=== PATIENT | male | born 1945 | race Two or more races ===

== ENCOUNTER 2023-04-20 18:43 | Inpatient (IN) | payer MEDICARE ==
[~2023-04-20] VITALS: Ht 180.3 cm; Wt 81.3 kg
[2023-04-20] MEDS ORDERED: DEXTROSE (50%) 50ML SYRG IV ONE (19:15)
[2023-04-20] MEDS ORDERED: ACCU-CHEK COMFORT CURVE STRIP VI ONE (19:30)
[2023-04-20 20:22] LABS: Basophils # (auto) 0 10 ^3/uL (0-0.2); Basophils % (auto) 0.6 % (0.0-2.0); Eosinophils # (auto) 0.1 10 ^3/uL (0-0.8); Eosinophils % (auto) 0.9 % (0.0-7.0); Hematocrit 31.1 % (41.0-53.0); Hemoglobin 10.4 g/dL (13.5-17.5); Lymphocytes # (auto) 0.8 10 ^3/uL (0.4-5.4); Lymphocytes % (auto) 8.8 % (10.0-50.0); Mean Corpuscular Hemoglobin 32.7 pg (28.0-32.0); Mean Corpuscular Hgb Conc. 33.4 g/dL (32.0-36.0); Mean Corpuscular Volume 97.8 fL (80.0-100.0); Monocytes # (auto) 1.3 10 ^3/uL (0-1.3); Monocytes % (auto) 15.8 % (0.0-12.0); Neutrophils # (auto) 6.3 10 ^3/uL (1.6-8.6); Neutrophils % (auto) 73.9 % (37.0-80.0); Nucleated Red Blood Cells % 0.1 %; Red Blood Cells 3.18 10^6/uL (4.5-5.90); Red Cell Distribution Width 16.4 % (11.8-14.3); White Blood Cell 8.6 10^3/uL (4.4-10.8)
[2023-04-20 20:44] LABS: Albumin 2.8 g/dL (3.4-5.0); Calcium 8.7 mg/dL (8.7-10.4); Potassium 4.1 mmol/L (3.5-5.1)
[2023-04-20 20:48] LABS: BUN/Creatinine Ratio 28.1 (10.0-20.0); Bilirubin, Total 0.4 mg/dL (0.2-1.0)
[2023-04-20 21:45] VITALS: PULSE 65; RESP 18; O2SAT 99
[2023-04-20 22:49] LABS: INR 1.03 (0.9-1.15); Partial Thromboplastin Time 23.6 SEC (24.5-34.5); Prothrombin Time 10.8 sec (9.3-11.8)
[2023-04-20 22:57] LABS: Blood Alcohol < 3.0 mg/dL (<10); Lipase 75 U/L (73-393); Magnesium 1.9 mg/dL (1.6-2.6)
[2023-04-21 01:42] LABS: Urine Bacteria NONE SEEN /hpf (None Seen); Urine Blood 2+ /uL (Negative); Urine Clarity HAZY (Clear); Urine Color Yellow (Yellow); Urine Protein, UAD 1+ (Negative); Urine Specific Gravity 1.018 (1.001-1.035); Urine Urobilinogen Normal (Negative); Urine WBC 47 /hpf (0 - 3); Urine pH 8.5 (5.0-8.0)
[2023-04-21 01:48] LABS: Alcohol, Urine < 3.0 mg/dL (0-10); Amphetamine Screen, Urine NEGATIVE (NEGATIVE); Barbiturate Scree,Urine NEGATIVE (NEGATIVE); Benzodiazephine Screen, Urine NEGATIVE (NEGATIVE); Cannabinoid Screen, Urine NEGATIVE (NEGATIVE); Cocaine Screen, Urine NEGATIVE (NEGATIVE); Opiate Scree,Urine NEGATIVE (NEGATIVE); Phencyclidine Screen, Urine NEGATIVE (NEGATIVE)
[2023-04-21] MEDS ORDERED: cefTRIAXone 1GM/50ML D5W 50 ML IV ONE (02:30)
[2023-04-21] MEDS ORDERED: LACTATED RINGER'S 1,000 ML IV ONE (02:30)
[2023-04-21] MEDS ORDERED: MORPHINE SULFATE INJ 2 MG/ml SYRG IV PRN (05:15)
[2023-04-21] MEDS ORDERED: NITROGLYCERIN 0.4 MG SL TAB SL PRN (05:15)
[2023-04-21] MEDS ORDERED: DEXTROSE (50%) 50ML SYRG IV PRN (05:15)
[2023-04-21] MEDS ORDERED: HYDROcodone-ACET 5/325MG TAB PO PRN (05:15)
[2023-04-21] MEDS ORDERED: ONDANSETRON HCL 4 MG/2 ML VIAL IV PRN (05:15)
[2023-04-21] MEDS ORDERED: ACETAMINOPHEN 325 MG TAB PO PRN (05:15)
[2023-04-21] MEDS ORDERED: cefTRIAXone 1GM/50ML D5W 50 ML IV SCH (09:00)
[2023-04-21] MEDS: InsuLIN REG 1unit/0.01ml Soln (100units/ml) SC SCH ×4 (09:03→20:00)
[2023-04-21] MEDS: ACCU-CHEK COMFORT CURVE STRIP VI SCH ×4 (09:03→20:17)
[2023-04-21] MEDS: LISINOPRIL 20 MG TAB PO SCH (09:06)
[2023-04-21] MEDS: PANTOPRAZOLE 40 MG TAB PO SCH (09:06)
[2023-04-21] MEDS: ENOXAPARIN SOD 40 MG/0.4 ML SYRINGE SC SCH (09:06)
[2023-04-21 10:37] VITALS: PULSE 74; RESP 20; O2SAT 100
[2023-04-21] MEDS ORDERED: SODIUM CHLORIDE 0.9% 1,000 ML IV ONE (15:30)
[2023-04-21] MEDS: Glucerna Carbsteady SHAKE Vanilla 8oz PO SCH ×2 (19:01→21:50)
[2023-04-21] MEDS ORDERED: LORazepam 2MG/ML-1ML VIAL IV PRN (19:45)
[2023-04-21 20:15] VITALS: PULSE 74; RESP 12; O2SAT 100
[2023-04-21] MEDS: ATORVASTATIN 20 MG TAB PO SCH (22:17)
[2023-04-22] VITALS (8 sets, daily range): BP systolic 108–134; BP diastolic 61–69; PULSE 63–86; RESP 16–19; TEMP 96.3–97.9; O2SAT 93–98
[2023-04-22] MEDS: ACCU-CHEK COMFORT CURVE STRIP VI SCH ×6 (00:19→20:00)
[2023-04-22] MEDS: InsuLIN REG 1unit/0.01ml Soln (100units/ml) SC SCH ×6 (04:00→20:00)
[2023-04-22 06:04] LABS: Basophils # (auto) 0 10 ^3/uL (0-0.2); Basophils % (auto) 0.8 % (0.0-2.0); Eosinophils # (auto) 0.2 10 ^3/uL (0-0.8); Eosinophils % (auto) 4.4 % (0.0-7.0); Hematocrit 27.8 % (41.0-53.0); Hemoglobin 9.6 g/dL (13.5-17.5); Lymphocytes # (auto) 0.7 10 ^3/uL (0.4-5.4); Lymphocytes % (auto) 12.2 % (10.0-50.0); Mean Corpuscular Hemoglobin 34.2 pg (28.0-32.0); Mean Corpuscular Hgb Conc. 34.7 g/dL (32.0-36.0); Mean Corpuscular Volume 98.4 fL (80.0-100.0); Monocytes # (auto) 0.8 10 ^3/uL (0-1.3); Monocytes % (auto) 14.3 % (0.0-12.0); Neutrophils # (auto) 3.8 10 ^3/uL (1.6-8.6); Neutrophils % (auto) 68.3 % (37.0-80.0); Nucleated Red Blood Cells % 0.1 %; Red Blood Cells 2.82 10^6/uL (4.5-5.90); Red Cell Distribution Width 16.9 % (11.8-14.3); White Blood Cell 5.6 10^3/uL (4.4-10.8)
[2023-04-22 06:31] LABS: Alanine Aminotransferase 16 U/L (7-40); Albumin 3.4 g/dL (3.2-4.8); Alkaline Phosphatase 62 U/L (46-116); Anion Gap 8.2 (5-15); Aspartate Aminotransferase 14 U/L (13-40); BUN/Creatinine Ratio 24.4 (10.0-20.0); Blood Urea Nitrogen 21 mg/dL (9-23); Calcium 8.7 mg/dL (8.7-10.4); Carbon Dioxide 25.8 mmol/L (20-30); Chloride 99 mmol/L (98-107); Glucose 131 mg/dL (74-106); Potassium 3.9 mmol/L (3.5-5.1); Sodium 133 mmol/L (136-145)
[2023-04-22 06:32] LABS: Bilirubin, Total 0.5 mg/dL (0.2-1.0); Total Protein 5.5 g/dL (5.7-8.2)
[2023-04-22] MEDS: Glucerna Carbsteady SHAKE Vanilla 8oz PO SCH ×2 (09:00→18:00)
[2023-04-22] MEDS: ENOXAPARIN SOD 40 MG/0.4 ML SYRINGE SC SCH (09:16)
[2023-04-22] MEDS: PANTOPRAZOLE 40 MG TAB PO SCH (09:17)
[2023-04-22] MEDS: LISINOPRIL 20 MG TAB PO SCH (09:17)
[2023-04-22] MEDS: cefTRIAXone 1GM/50ML D5W 50 ML IV SCH (09:23)
[2023-04-22] MEDS ORDERED: Glucerna Carbsteady SHAKE Vanilla 8oz GT SCH (14:00)
[2023-04-22] MEDS ORDERED: [UNRECOGNIZED DRUG - CODE] GT (15:17)
[2023-04-22] MEDS ORDERED: HYDR-4902 PO (15:28)
[2023-04-22] MEDS ORDERED: PYRI60TA3 PO (15:28)
[2023-04-22] MEDS ORDERED: TAMS-35 PO (15:28)
[2023-04-22] MEDS ORDERED: SILV1CRE82 TOP (15:28)
[2023-04-22] MEDS ORDERED: DICL1GEL59 EX (15:28)
[2023-04-22] MEDS ORDERED: CYAN1SUB5 SL (15:28)
[2023-04-22] MEDS ORDERED: FLUO5CRE TOP (15:28)
[2023-04-22] MEDS ORDERED: PROC10TA6 PO (15:28)
[2023-04-22] MEDS ORDERED: APIX5TAB PO (15:28)
[2023-04-22] MEDS ORDERED: LOVA40TA72 PO (15:28)
[2023-04-22] MEDS ORDERED: SENN8.6C PO (15:28)
[2023-04-22] MEDS ORDERED: MAGN400C3 PO (15:28)
[2023-04-22] MEDS ORDERED: ONDA-155 PO (15:28)
[2023-04-22] MEDS ORDERED: THIA100T13 PO (15:28)
[2023-04-22] MEDS ORDERED: OME20T PO (15:28)
[2023-04-22] MEDS: ATORVASTATIN 20 MG TAB PO SCH (20:42)
[2023-04-23] VITALS (9 sets, daily range): BP systolic 99–141; BP diastolic 54–76; PULSE 57–86; RESP 16–19; TEMP 98–98.7; O2SAT 94–97
[2023-04-23] MEDS: ACCU-CHEK COMFORT CURVE STRIP VI SCH ×6 (04:00→20:00)
[2023-04-23] MEDS: InsuLIN REG 1unit/0.01ml Soln (100units/ml) SC SCH ×6 (04:00→20:00)
[2023-04-23 06:08] LABS: Basophils # (auto) 0 10 ^3/uL (0-0.2); Eosinophils # (auto) 0.2 10 ^3/uL (0-0.8); Eosinophils % (auto) 5.5 % (0.0-7.0); Hematocrit 27.7 % (41.0-53.0); Hemoglobin 9.5 g/dL (13.5-17.5); Lymphocytes # (auto) 0.7 10 ^3/uL (0.4-5.4); Lymphocytes % (auto) 14.5 % (10.0-50.0); Mean Corpuscular Hemoglobin 33.7 pg (28.0-32.0); Mean Corpuscular Hgb Conc. 34.2 g/dL (32.0-36.0); Mean Corpuscular Volume 98.5 fL (80.0-100.0); Monocytes # (auto) 0.7 10 ^3/uL (0-1.3); Monocytes % (auto) 15.3 % (0.0-12.0); Neutrophils # (auto) 2.9 10 ^3/uL (1.6-8.6); Neutrophils % (auto) 63.7 % (37.0-80.0); Red Blood Cells 2.81 10^6/uL (4.5-5.90); Red Cell Distribution Width 16.5 % (11.8-14.3); White Blood Cell 4.5 10^3/uL (4.4-10.8)
[2023-04-23 06:25] LABS: Alanine Aminotransferase 13 U/L (7-40); Albumin 3.3 g/dL (3.2-4.8); Alkaline Phosphatase 63 U/L (46-116); Aspartate Aminotransferase 15 U/L (13-40); BUN/Creatinine Ratio 23.4 (10.0-20.0); Blood Urea Nitrogen 18 mg/dL (9-23); Calcium 8.7 mg/dL (8.5-10.1); Chloride 100 mmol/L (98-107); Glucose 94 mg/dL (74-106); Potassium 4.2 mmol/L (3.5-5.1); Sodium 133 mmol/L (136-145)
[2023-04-23 06:26] LABS: Bilirubin, Total 0.4 mg/dL (0.2-1.0); Total Protein 5.3 g/dL (5.7-8.2)
[2023-04-23] MEDS: PANTOPRAZOLE 40 MG TAB PO SCH (09:39)
[2023-04-23] MEDS: ENOXAPARIN SOD 40 MG/0.4 ML SYRINGE SC SCH (09:40)
[2023-04-23] MEDS: cefTRIAXone 1GM/50ML D5W 50 ML IV SCH (09:40)
[2023-04-23] MEDS: LISINOPRIL 20 MG TAB PO SCH (09:46)
[2023-04-23] MEDS: Glucerna Carbsteady SHAKE Vanilla 8oz PO SCH ×2 (09:47→13:08)
[2023-04-23] MEDS ORDERED: PYRIDOstigmine BROMIDE 60 MG TAB PO SCH (10:00)
[2023-04-23] MEDS ORDERED: PYRIDOstigmine BROMIDE 60 MG TAB PO ONE (11:30)
[2023-04-23] MEDS: ATORVASTATIN 20 MG TAB PO SCH (20:51)
[2023-04-24] MEDS: ACCU-CHEK COMFORT CURVE STRIP VI SCH ×5 (04:00→15:57)
[2023-04-24] MEDS: InsuLIN REG 1unit/0.01ml Soln (100units/ml) SC SCH ×4 (04:00→12:00)
[2023-04-24 05:00] VITALS: BP 122/67; PULSE 77; RESP 18; TEMP 97.8; O2SAT 96
[2023-04-24 08:00] VITALS: PULSE 68; PULSE 77; RESP 18
[2023-04-24 09:00] VITALS: BP 107/48; PULSE 73; RESP 16; TEMP 97.7; O2SAT 95
[2023-04-24] MEDS: LISINOPRIL 20 MG TAB PO SCH (09:20)
[2023-04-24] MEDS: Glucerna Carbsteady SHAKE Vanilla 8oz PO SCH ×3 (09:22→12:00)
[2023-04-24] MEDS: cefTRIAXone 1GM/50ML D5W 50 ML IV SCH (09:23)
[2023-04-24] MEDS: PANTOPRAZOLE 40 MG TAB PO SCH (09:23)
[2023-04-24] MEDS: ENOXAPARIN SOD 40 MG/0.4 ML SYRINGE SC SCH (09:24)
[2023-04-24] MEDS ORDERED: PYRIDOstigmine BROMIDE 60 MG TAB PO SCH (10:00)
[2023-04-24] MEDS ORDERED: CIPR-173 PO (12:46)
[2023-04-24 13:00] VITALS: BP_SYST 0; BP_SYST 109; BP_SYST 125; BP_DIAS 65; BP_DIAS 69; BP_DIAS 71; PULSE 68; PULSE 70; PULSE 93; RESP 18; RESP 20; TEMP 98.1; TEMP 98.2; TEMP 99; O2SAT 92; O2SAT 97; O2SAT 98
[2023-04-24 15:00] VITALS: BP 122/67; TEMP 36.7
== END 2023-04-24 16:08 | disposition home or self-care (01) | DRG 871 ==
LOC: ER 18:43 → EDBD 18:43 → TELE 04-21 05:17 → TELE-WESTW 04-21 23:50
PROVIDERS: ADMIT Nurse Practitioner; ATTEND Family Medicine
DX: A41.9 Sepsis, unspecified organism (principal); G93.41 Metabolic encephalopathy; C15.9 Malignant neoplasm of esophagus, unspecified; N39.0 Urinary tract infection, site not specified; E86.0 Dehydration; E11.21 Type 2 diabetes mellitus with diabetic nephropathy; E11.649 Type 2 diabetes mellitus with hypoglycemia without coma; I10 Essential (primary) hypertension; D63.8 Anemia in other chronic diseases classified elsewhere; E78.5 Hyperlipidemia, unspecified; K21.9 Gastro-esophageal reflux disease without esophagitis; I95.1 Orthostatic hypotension; R79.89 Other specified abnormal findings of blood chemistry; N40.0 Benign prostatic hyperplasia without lower urinary tract symptoms; Z86.718 Personal history of other venous thrombosis and embolism; Z92.3 Personal history of irradiation; Z92.21 Personal history of antineoplastic chemotherapy; Z85.01 Personal history of malignant neoplasm of esophagus
CPT/HCPCS: 36415; 70450; 70551; 71045; 80053; 80307; 80320; 81001; 82962; 83690; 83735; 84484; 85025; 85610; 85730; 87040; 87077; 87081; 87086; 87186; 93005; 93306; 93886; 95819; 97110; 97116; 97163; 97530; 99291; G0378; J0696; J1815